=== PATIENT | male | born 1975 | race Caucasian/White ===

== ENCOUNTER 2023-01-06 07:10 | Outpatient (CLI) | payer BC ==
[2023-01-06] MEDS ORDERED: MELOXICAM7.5 MG PO (10:31)
[2023-01-06] MEDS ORDERED: CLINDAMYCIN HC150 MG PO (10:31)
[2023-01-07] MEDS ORDERED: DEXAMETHASONE SOD PHOS INJ 4 MG/ML SDV ONE (12:42)
[2023-01-07] MEDS ORDERED: POVIDONE IODINE 0.05% 0.05 % ML PO ONE (12:42)
[2023-01-07] MEDS ORDERED: SEVOFLURANE INHAL SOLN 250 ML PEN BTL ONE (12:42)
[2023-01-07] MEDS ORDERED: LIDOCAINE HCL 2% LOCAL INJ 5 ML SDV VIAL INJ ONE (12:42)
[2023-01-07] MEDS ORDERED: PROPOFOL IV EMULSION 10 MG/ML 20 ML VIAL ONE (12:42)
[2023-01-07] MEDS ORDERED: ONDANSETRON HCL INJ 2MG/ML 2ML 2 MG/ML VIAL ONE (12:42)
[2023-01-07] MEDS ORDERED: MIDAZOLAM HCL 2 MG/2 ML VIAL ONE (13:25)
[2023-01-07] MEDS ORDERED: FENTANYL CITRATE/PF 100MCG/2 ML INJ ONE ×2 (13:25→14:12)
[2023-01-07] MEDS ORDERED: HYDROMORPHONE 1MG/1ML INJ ONE (14:36)
[2023-01-07] MEDS ORDERED: KETOROLAC TROMETHAMINE 30 MG/ML VIAL IV PRN (17:45)
[2023-01-07] MEDS ORDERED: HYDROCODONE/APAP 5MG-325MG TAB PO PRN (17:45)
[2023-01-07] MEDS ORDERED: HYDROCODONE/APAP 7.5MG-325MG 1 EA TAB PO PRN (17:45)
[2023-01-07] MEDS ORDERED: Vancomycin IV 1 GM in SODIUM CHLORIDE 0.9% 250ML 250 ML IV SCH (18:30)
[2023-01-07] MEDS ORDERED: AMBIEN10 MG PO (19:42)
== END 2023-01-07 10:15 ==
LOC: RAD 07:10 → OR 01-07 07:10 → RAD 01-07 10:15 → EDSTATUS 01-07 11:30
PROVIDERS: ATTEND Orthopaedic Surgery
DX: Z01.810 Encounter for preprocedural cardiovascular examination (principal); Z01.812 Encounter for preprocedural laboratory examination; S83.241A Other tear of medial meniscus, current injury, right knee, initial encounter
CPT/HCPCS: 0223U; 36415; 88304; 93005; J3010; J1170

== ENCOUNTER 2023-01-07 08:05 | Inpatient (IN) | payer BC ==
[~2023-01-07] VITALS: Ht 180.3 cm; Wt 97.5 kg
[~2023-01-07 08:05] MED LIST: CLINDAMYCIN HC150 MG PO; MELOXICAM7.5 MG PO
[2023-01-07 08:58] LABS: BASOPHILS % 0.3 % (0.0-1.0); EOSINOPHILS # (AUTO) 0.1 (0.0-0.4); EOSINOPHILS % 0.8 % (0.0-6.0); HEMATOCRIT 47.4 % (38.2-49.6); HEMOGLOBIN 15.6 g/dL (14.0-18.0); LYMPHOCYTES # (AUTO) 1.1 (1.0-3.2); LYMPHOCYTES % 11.3 % (18.0-39.1); MEAN CORPUSCULAR HEMOGLOBIN 29.7 pg (28-32); MEAN CORPUSCULAR HGB CONC 32.9 g/dL (31-35); MEAN CORPUSCULAR VOLUME 90.1 fL (81-99); NEUTROPHILS # (AUTO) 7.5 (2.1-6.9); NEUTROPHILS % 77.2 % (38.7-80.0); PLATELET COUNT 267 x10e3/uL (140-360); RED BLOOD COUNT 5.26 x10e6/uL (4.3-5.7)
[2023-01-07 09:08] LABS: INR 1.06
[2023-01-07 09:09] LABS: PARTIAL THROMBOPLASTIN TIME 41.5 seconds (23.8-35.5)
[2023-01-07 09:17] LABS: ALBUMIN 3.2 g/dL (3.5-5.0); ANION GAP 13.3 mmol/L (8-16); CALCIUM 9.3 mg/dL (8.4-10.2); CREATININE, SERUM 0.85 mg/dL (0.72-1.25); POTASSIUM 4.3 mmol/L (3.5-5.1)
[2023-01-07 09:18] LABS: ALBUMIN/GLOBULIN RATIO 0.6 (0.8-2.0)
[2023-01-07] MEDS ORDERED: SODIUM CHLORIDE FLUSH 10 ML SYR INJ PRN (11:15)
[2023-01-07] MEDS ORDERED: Vancomycin IV 1 GM VIAL ONE ×2 (11:49→13:05)
[2023-01-07] MEDS ORDERED: Clindamycin INJ 300 MG/50 ML 50 ML IV ONE (12:00)
[2023-01-07] MEDS ORDERED: LIDOCAINE 1% W/EPINEPHRINE 20 ML VIAL ONE (13:02)
[2023-01-07] MEDS ORDERED: BUPIVACAINE HCL 0.5% INJ 30 ML VIAL INJ ONE (13:02)
[2023-01-07] MEDS ORDERED: HYDRALAZINE HCL 20 MG/ML VIAL IV PRN (13:30)
[2023-01-07] MEDS ORDERED: DIPHENHYDRAMINE HCL 25 MG CAP PO PRN (13:30)
[2023-01-07] MEDS ORDERED: LIDOCAINE 4% PATCH TP PRN (13:30)
[2023-01-07] MEDS ORDERED: ALBUTEROL/IPRATROPIUM 3 ML NEB NEB PRN (13:30)
[2023-01-07] MEDS ORDERED: BENZONATATE 100 MG CAP PO PRN (13:30)
[2023-01-07] MEDS ORDERED: POTASSIUM CHLORIDE 20 MEQ TAB CR PO PRN (13:30)
[2023-01-07] MEDS ORDERED: DEXTROSE 50% SYRINGE 50 ML IV PRN (13:30)
[2023-01-07] MEDS ORDERED: DOCUSATE SODIUM 100 MG CAP PO PRN (13:30)
[2023-01-07] MEDS ORDERED: SIMETHICONE 80 MG CHEW PO PRN (13:30)
[2023-01-07] MEDS ORDERED: ACETAMINOPHEN 325 MG TAB PO PRN (13:30)
[2023-01-07] MEDS ORDERED: IPRATROPIUM BROMIDE 0.02% 2.5 ML NEB NEB PRN (14:00)
[2023-01-07] MEDS ORDERED: ALBUTEROL SULF 0.083% NEB SOLN 3 ML NEB NEB PRN (14:00)
[2023-01-07 14:43] LABS: BODY FLUID APPEARANCE CLOUDY; BODY FLUID COLOR YELLOW; BODY FLUID TYPE SYNOVIAL; RBC,BODY FLUID 14000 cells/uL; WBC,BODY FLUID 82833 cells/uL
[2023-01-07 15:02] VITALS: BP 94/44
[2023-01-07 15:08] VITALS: BP 125/69
[2023-01-07] MEDS ORDERED: FENTANYL CITRATE/PF 100MCG/2 ML INJ ONE (15:09)
[2023-01-07] MEDS ORDERED: HYDROMORPHONE 1MG/1ML INJ ONE (15:09)
[2023-01-07 16:19] VITALS: BP 125/69
[2023-01-07 16:19] LABS: GLUCOSE,BODY FLUID 34 mg/dL
[2023-01-07 16:57] VITALS: BP 129/76
[2023-01-07 19:10] LABS: LYMPHOCYTES,BODY FLUID 1 %; MONO/MACROPHG,BODY FLUID 11 %; NEUTROPHILS,BODY FLUID 88 %
[2023-01-07] MEDS ORDERED: AMBIEN10 MG PO (19:42)
[2023-01-07 20:00] VITALS: BP 107/67
[2023-01-07] MEDS: ENOXAPARIN SOD INJ 40 MG/0.4 ML SYR SC SCH (20:42)
[2023-01-07] MEDS: CEFTRIAXONE 2 GM in SODIUM CHLORIDE 0.9% 100 ML IV SCH (20:42)
[2023-01-07] MEDS ORDERED: SODIUM CHLORIDE 0.9% 500ML 500 ML ONE (20:43)
[2023-01-07] MEDS: ONDANSETRON HCL INJ 2MG/ML 2ML 2 MG/ML VIAL IV PRN (20:47)
[2023-01-07] MEDS: Morphine 2mg Syringe 2 MG/ML SYR IV PRN (20:48)
[2023-01-07] MEDS: MELATONIN 5 MG TABLET PO PRN (20:48)
[2023-01-07] MEDS: ZOLPIDEM TARTRATE 5 MG TAB PO PRN (22:22)
[2023-01-08] VITALS (9 sets, daily range): BP systolic 119–154; BP diastolic 73–96
[2023-01-08] MEDS: Vancomycin IV 1 GM in SODIUM CHLORIDE 0.9% 250ML 250 ML IV SCH ×3 (00:32→23:34)
[2023-01-08 06:34] LABS: BASOPHILS % 0.2 % (0.0-1.0); EOSINOPHILS % 0.1 % (0.0-6.0); HEMATOCRIT 41.9 % (38.2-49.6); HEMOGLOBIN 13.7 g/dL (14.0-18.0); LYMPHOCYTES # (AUTO) 1.1 (1.0-3.2); LYMPHOCYTES % 12.5 % (18.0-39.1); MEAN CORPUSCULAR HEMOGLOBIN 29.4 pg (28-32); MEAN CORPUSCULAR HGB CONC 32.7 g/dL (31-35); MEAN CORPUSCULAR VOLUME 89.9 fL (81-99); MONOCYTES # (AUTO) 0.9 (0.2-0.8); NEUTROPHILS % 76.9 % (38.7-80.0); PLATELET COUNT 231 x10e3/uL (140-360); RED BLOOD COUNT 4.66 x10e6/uL (4.3-5.7)
[2023-01-08 06:59] LABS: ALBUMIN 2.6 g/dL (3.5-5.0); ALBUMIN/GLOBULIN RATIO 0.6 (0.8-2.0); ANION GAP 10.8 mmol/L (8-16); CALCIUM 8.5 mg/dL (8.4-10.2); CREATININE, SERUM 0.84 mg/dL (0.72-1.25); MAGNESIUM 2.1 MG/DL (1.3-2.1); POTASSIUM 3.8 mmol/L (3.5-5.1)
[2023-01-08] MEDS: PANTOPRAZOLE SOD 40 MG TABEC PO SCH (07:56)
[2023-01-08] MEDS: HYDROCODONE/APAP 5MG-325MG TAB PO PRN ×2 (12:42→21:34)
[2023-01-08] MEDS: KETOROLAC TROMETHAMINE 30 MG/ML VIAL IV SCH ×3 (15:51→23:36)
[2023-01-08] MEDS: ENOXAPARIN SOD INJ 40 MG/0.4 ML SYR SC SCH (17:47)
[2023-01-08] MEDS: MELATONIN 5 MG TABLET PO PRN (21:35)
[2023-01-08] MEDS: CEFTRIAXONE 2 GM in SODIUM CHLORIDE 0.9% 100 ML IV SCH (21:36)
[2023-01-08] MEDS: ZOLPIDEM TARTRATE 5 MG TAB PO PRN (23:34)
[2023-01-09] VITALS (8 sets, daily range): BP systolic 130–157; BP diastolic 82–105
[2023-01-09] MEDS: KETOROLAC TROMETHAMINE 30 MG/ML VIAL IV SCH ×3 (05:32→17:46)
[2023-01-09 06:27] LABS: BASOPHILS % 0.2 % (0.0-1.0); EOSINOPHILS # (AUTO) 0.1 (0.0-0.4); EOSINOPHILS % 1.3 % (0.0-6.0); HEMATOCRIT 42.5 % (38.2-49.6); LYMPHOCYTES # (AUTO) 1.8 (1.0-3.2); LYMPHOCYTES % 19.7 % (18.0-39.1); MEAN CORPUSCULAR HEMOGLOBIN 29.7 pg (28-32); MEAN CORPUSCULAR HGB CONC 32.9 g/dL (31-35); MONOCYTES # (AUTO) 0.9 (0.2-0.8); NEUTROPHILS # (AUTO) 6.1 (2.1-6.9); NEUTROPHILS % 68.5 % (38.7-80.0); PLATELET COUNT 239 x10e3/uL (140-360); RED BLOOD COUNT 4.72 x10e6/uL (4.3-5.7); RED CELL DISTRIBUTION WIDTH 11.1 % (11.7-14.4)
[2023-01-09 06:48] LABS: ANION GAP 12.8 mmol/L (8-16); CALCIUM 8.4 mg/dL (8.4-10.2); CREATININE, SERUM 0.81 mg/dL (0.72-1.25); POTASSIUM 3.8 mmol/L (3.5-5.1)
[2023-01-09] MEDS: PANTOPRAZOLE SOD 40 MG TABEC PO SCH (08:21)
[2023-01-09] MEDS: ONDANSETRON HCL INJ 2MG/ML 2ML 2 MG/ML VIAL IV PRN (08:34)
[2023-01-09] MEDS: Morphine 2mg Syringe 2 MG/ML SYR IV PRN (08:35)
[2023-01-09] MEDS: Vancomycin IV 1 GM in SODIUM CHLORIDE 0.9% 250ML 250 ML IV SCH (12:36)
[2023-01-09] MEDS: ENOXAPARIN SOD INJ 40 MG/0.4 ML SYR SC SCH (17:47)
[2023-01-09] MEDS: CEFTRIAXONE 2 GM in SODIUM CHLORIDE 0.9% 100 ML IV SCH (20:56)
[2023-01-09] MEDS: ZOLPIDEM TARTRATE 5 MG TAB PO PRN (20:56)
[2023-01-10] MEDS: Vancomycin IV 1 GM in SODIUM CHLORIDE 0.9% 250ML 250 ML IV SCH (00:09)
[2023-01-10 00:10] VITALS: BP 147/98
[2023-01-10] MEDS: KETOROLAC TROMETHAMINE 30 MG/ML VIAL IV SCH ×2 (00:10→06:47)
[2023-01-10 04:00] VITALS: BP 160/90
[2023-01-10 09:00] VITALS: BP 160/90
[2023-01-10] MEDS: PANTOPRAZOLE SOD 40 MG TABEC PO SCH (09:32)
[2023-01-10] MEDS: HYDROCODONE/APAP 5MG-325MG TAB PO PRN (09:33)
[2023-01-10 10:04] VITALS: BP 149/98
[2023-01-10 12:33] VITALS: BP 152/88
[2023-01-10] MEDS ORDERED: ONDANSETRON HCL 4 MG ORAL DISINTEGRATING TAB PO PRN (12:45)
[2023-01-10] MEDS ORDERED: DAPTOMYCIN 500mg 10ML 500 MG in SODIUM CHLORIDE 0.9% 100 ML IV SCH (14:00)
== END 2023-01-10 15:39 | disposition home health service (06) | DRG 487 ==
LOC: ER 08:13 → OBSVTOIN 11:16 → ERHOLD 11:16 → MED/SURG 14:51
PROVIDERS: ADMIT Internal Medicine; ATTEND Internal Medicine
PROC: 0SBC4ZZ Excision of Right Knee Joint, Percutaneous Endoscopic Approach (ICD-10-PCS; 2023-01-07)
PROC: 0SQC4ZZ Repair Right Knee Joint, Percutaneous Endoscopic Approach (ICD-10-PCS; 2023-01-07)
PROC: 02HV33Z Insertion of Infusion Device into Superior Vena Cava, Percutaneous Approach (ICD-10-PCS; principal; 2023-01-10)
DX: M00.9 Pyogenic arthritis, unspecified (principal); S83.241A Other tear of medial meniscus, current injury, right knee, initial encounter; E66.01 Morbid (severe) obesity due to excess calories; Z68.30 Body mass index [BMI] 30.0-30.9, adult; Z20.822 Contact with and (suspected) exposure to COVID-19; G47.33 Obstructive sleep apnea (adult) (pediatric)
CPT/HCPCS: 0223U; 36415; 36569; 71045; 80048; 80053; 80202; 82945; 83036; 83735; 85025; 85610; 85730; 87071; 87075; 87102; 87205; 87206; 89051; 89060; 94799; 99284; J0696; J1170; J1650; J1885; J2270; J2405; J3010; J3370; J7040; J7050